=== PATIENT | female | born 1980 | race Caucasian/White ===

== ENCOUNTER 2021-03-10 13:42 | Inpatient (IN) | payer OTHER ==
[2021-03-10 17:02] LABS: BASO % 0.5 % (0-2.0); EOS % 0.4 % (0-4.5); HEMATOCRIT 35.4 % (32.4-45.2); HEMOGLOBIN 12.1 GM/dL (10.7-15.3); MCH 28.1 pg (25.7-33.7); MCHC 34.1 g/dl (32.0-36.0); MEAN CELL VOLUME 82.3 fl (80-96); MEAN PLT VOLUME 8.8 fl (7.5-11.1); NEUT % 85.1 % (42.8-82.8); PLATELET COUNT 251 10^3/uL (134-434); RDW 13.2 % (11.6-15.6); WHITE BLOOD COUNT 11.7 K/mm3 (4.0-10.0)
[2021-03-10] MEDS ORDERED: VANCOMYCIN 1 GM in D5W (PRE-DOCKED) 1,000 MG/250 ML IVPB ONE (17:06)
[2021-03-10 17:09] LABS: INR 1.14 (0.83-1.09); PROTHROMBIN TIME (PATIENT) 12.8 SEC (9.7-13.0)
[2021-03-10 17:11] LABS: ACTIVATED PTT 30.5 SECONDS (25.2-36.5)
[2021-03-10] MEDS ORDERED: VANCOMYCIN 1 GRAM (PRE-DOCKED) 1,000 MG/250 ML BAG IVPB ONE (17:21)
[2021-03-10 17:26] LABS: CALCIUM 9.1 mg/dL (8.5-10.1)
[2021-03-10 17:27] LABS: ALBUMIN 3.7 g/dl (3.4-5.0); BLOOD UREA NITROGEN 7.9 mg/dL (7-18)
[2021-03-10 17:30] LABS: CREATININE 0.7 mg/dL (0.55-1.3)
[2021-03-10 17:32] LABS: BILIRUBIN,TOTAL 0.6 mg/dL (0.2-1); TOT PROT 7.5 g/dl (6.4-8.2)
[2021-03-10] MEDS ORDERED: ACETAMINOPHEN 1000 MG/100 ML VIAL IVPB PRN (22:15)
[2021-03-10] MEDS ORDERED: morphine SULFATE 4 MG/ML VIAL IVPUSH PRN (22:16)
[2021-03-10 23:17] VITALS: BMI 27.1
[2021-03-11] MEDS ORDERED: ACETAMINOPHEN 1000 MG/100 ML VIAL IVPB PRN ×2 (04:51→11:28)
[2021-03-11] MEDS ORDERED: VANCOMYCIN 1 GRAM (PRE-DOCKED) 1,000 MG/250 ML BAG IVPB SCH (05:00)
[2021-03-11] MEDS ORDERED: SODIUM CHLORIDE 1,000 ML IV SCH (05:00)
[2021-03-11 08:54] LABS: HEMATOCRIT 32.3 % (32.4-45.2); HEMOGLOBIN 11.2 GM/dL (10.7-15.3); MCH 28.7 pg (25.7-33.7); MCHC 34.6 g/dl (32.0-36.0); MEAN CELL VOLUME 82.8 fl (80-96); MEAN PLT VOLUME 8.7 fl (7.5-11.1); PLATELET COUNT 211 10^3/uL (134-434); WHITE BLOOD COUNT 7.2 K/mm3 (4.0-10.0)
[2021-03-11 09:00] LABS: INR 1.26 (0.83-1.09); PROTHROMBIN TIME (PATIENT) 14.8 SEC (9.7-13.0)
[2021-03-11 09:12] LABS: CALCIUM 8.1 mg/dL (8.5-10.1)
[2021-03-11] MEDS ORDERED: SUCCINYLCHOLINE CHLORIDE 200 MG/10 ML SYRINGE ONE (09:12)
[2021-03-11] MEDS ORDERED: PROPOFOL 20 ML ONE (09:12)
[2021-03-11] MEDS ORDERED: ROCURONIUM BROMIDE 50 MG/5 ML SYRINGE ONE (09:12)
[2021-03-11 09:13] LABS: BLOOD UREA NITROGEN 6.1 mg/dL (7-18)
[2021-03-11] MEDS ORDERED: LIDOCAINE HCL 2% 100 MG/5 ML DISP.SYRIN ONE (09:13)
[2021-03-11] MEDS ORDERED: MIDAZOLAM HCL 2 MG/2 ML SINGLE DOSE VIAL ONE (09:13)
[2021-03-11 09:16] LABS: CREATININE 0.6 mg/dL (0.55-1.3)
[2021-03-11 09:18] LABS: BILIRUBIN,TOTAL 0.5 mg/dL (0.2-1); TOT PROT 6.1 g/dl (6.4-8.2)
[2021-03-11 09:37] LABS: ALBUMIN 2.8 g/dl (3.4-5.0)
[2021-03-11] MEDS ORDERED: VANCOMYCIN 1,000 MG VIAL (RESTRICTED TO ID ONLY) ONE ×2 (10:15→10:17)
[2021-03-11] MEDS ORDERED: DEXAMETHASONE SOD PHOSPHATE 4 MG/1 ML VIAL ONE (10:38)
[2021-03-11] MEDS ORDERED: LIDOCAINE HCL 1%, 10 MG/ML (20ML VIAL) INF ONE (10:50)
[2021-03-11] MEDS ORDERED: VANCOMYCIN 1,000 MG VIAL (RESTRICTED TO ID ONLY) IVPB ONE ×2 (11:00)
[2021-03-11] MEDS ORDERED: MEPERIDINE HCL 25 MG/ML VIAL IM PRN (11:22)
[2021-03-11] MEDS ORDERED: HYDROmorphone HCl 2 MG/ML VIAL ONE (11:25)
[2021-03-11] MEDS ORDERED: HYDROmorphone HCl 2 MG/ML VIAL IVPUSH PRN ×2 (11:26)
[2021-03-11] MEDS ORDERED: ACETAMINOPHEN 1000 MG/100 ML VIAL IVPB ONE (11:27)
[2021-03-11] MEDS ORDERED: ONDANSETRON 4 MG/2 ML VIAL IVPUSH PRN (11:27)
[2021-03-11] MEDS ORDERED: LACTATED RINGERS SOLUTION 1,000 ML IV SCH (11:30)
[2021-03-11] MEDS ORDERED: ACETAMINOPHEN INJECTION 100 ML IVPB ONE (11:37)
[2021-03-11] MEDS: SODIUM CHLORIDE 1,000 ML IV SCH (12:38)
[2021-03-11] MEDS ORDERED: oxyCODONE HCL 5 MG TABLET PO PRN (13:30)
[2021-03-11] MEDS: VANCOMYCIN 1 GRAM (PRE-DOCKED) 1,000 MG/250 ML BAG IVPB SCH (18:27)
[2021-03-11] MEDS: oxyCODONE HCL 5 MG TABLET PO PRN (19:57)
[2021-03-12] MEDS: VANCOMYCIN 1 GRAM (PRE-DOCKED) 1,000 MG/250 ML BAG IVPB SCH ×2 (05:54→18:36)
[2021-03-12] MEDS: SODIUM CHLORIDE 1,000 ML IV SCH ×2 (06:57→12:29)
[2021-03-12 08:19] LABS: BASO % 0.5 % (0-2.0); EOS % 2.3 % (0-4.5); HEMATOCRIT 31.5 % (32.4-45.2); HEMOGLOBIN 10.7 GM/dL (10.7-15.3); LYMPH % 21.2 % (8-40); MCH 28.1 pg (25.7-33.7); MEAN CELL VOLUME 82.6 fl (80-96); MEAN PLT VOLUME 8.5 fl (7.5-11.1); MONO % 8.1 % (3.8-10.2); NEUT % 67.9 % (42.8-82.8); PLATELET COUNT 234 10^3/uL (134-434); RBC 3.82 M/mm3 (3.60-5.2); RDW 13.3 % (11.6-15.6); WHITE BLOOD COUNT 7.9 K/mm3 (4.0-10.0)
[2021-03-12 08:50] LABS: ALBUMIN 2.7 g/dl (3.4-5.0); BLOOD UREA NITROGEN 7.1 mg/dL (7-18); CALCIUM 8.2 mg/dL (8.5-10.1)
[2021-03-12 08:52] LABS: BILIRUBIN,TOTAL 0.3 mg/dL (0.2-1); TOT PROT 5.9 g/dl (6.4-8.2)
[2021-03-12 08:53] LABS: CREATININE 0.6 mg/dL (0.55-1.3); PHOSPHOROUS 2.3 mg/dL (2.5-4.9)
[2021-03-12] MEDS: NAPH,MB-DB/K PH,MBDB POWDER PACKET PO SCH ×2 (09:55→21:14)
[2021-03-12] MEDS: POLYETHYLENE GLYCOL (HEALTHYLAX) 3350 17 GM PACKET PO SCH (10:24)
[2021-03-12] MEDS: oxyCODONE HCL 5 MG TABLET PO PRN (18:36)
[2021-03-12] MEDS: TOPIRAMATE 100 MG TABLET PO SCH (21:14)
[2021-03-12] MEDS ORDERED: TOPIRAMATE 100 MG TABLET PO SCH (22:00)
[2021-03-13] MEDS: SODIUM CHLORIDE 1,000 ML IV SCH ×2 (04:56→13:16)
[2021-03-13] MEDS: VANCOMYCIN 1 GRAM (PRE-DOCKED) 1,000 MG/250 ML BAG IVPB SCH ×2 (04:58→19:51)
[2021-03-13] MEDS: oxyCODONE HCL 5 MG TABLET PO PRN ×3 (04:59→22:25)
[2021-03-13 08:19] LABS: BASO % 0.7 % (0-2.0); EOS % 4.4 % (0-4.5); HEMATOCRIT 31.8 % (32.4-45.2); HEMOGLOBIN 10.6 GM/dL (10.7-15.3); LYMPH % 27.3 % (8-40); MCH 28.1 pg (25.7-33.7); MCHC 33.5 g/dl (32.0-36.0); MEAN CELL VOLUME 83.8 fl (80-96); MEAN PLT VOLUME 8.5 fl (7.5-11.1); MONO % 7.1 % (3.8-10.2); NEUT % 60.5 % (42.8-82.8); PLATELET COUNT 278 10^3/uL (134-434); RBC 3.79 M/mm3 (3.60-5.2); RDW 13.3 % (11.6-15.6); WHITE BLOOD COUNT 5.6 K/mm3 (4.0-10.0)
[2021-03-13 08:42] LABS: CALCIUM 8.6 mg/dL (8.5-10.1)
[2021-03-13 08:43] LABS: ALBUMIN 2.8 g/dl (3.4-5.0); MAGNESIUM 1.9 mg/dL (1.8-2.4)
[2021-03-13 08:46] LABS: CREATININE 0.6 mg/dL (0.55-1.3); PHOSPHOROUS 3.6 mg/dL (2.5-4.9)
[2021-03-13 08:47] LABS: BILIRUBIN,TOTAL 0.3 mg/dL (0.2-1)
[2021-03-13] MEDS: POLYETHYLENE GLYCOL (HEALTHYLAX) 3350 17 GM PACKET PO SCH (10:11)
[2021-03-13 15:13] LABS: URINE APPEARANCE CLEAR; URINE BILIRUBIN NEGATIVE (NEGATIVE); URINE COLOR YELLOW; URINE GLUCOSE (UA) NEGATIVE (NEGATIVE); URINE KETONE NEGATIVE (NEGATIVE); URINE LEUK ESTERASE NEGATIVE (NEGATIVE); URINE NITRITE NEGATIVE (NEGATIVE); URINE PROTEIN NEGATIVE (NEGATIVE); URINE UROBILINOGEN 0.2 mg/dL (0.2-1.0)
[2021-03-13] MEDS: PANTOPRAZOLE 20 MG TABLET PO SCH ×2 (15:25→22:25)
[2021-03-13] MEDS ORDERED: PT OWN MED DRAWER 7, Y5N ONE (22:19)
[2021-03-13] MEDS: TOPIRAMATE 100 MG TABLET PO SCH (22:25)
[2021-03-13] MEDS: VANCOMYCIN/WATER BAGS 1,250 MG/250 ML BAG IVPB SCH (22:26)
[2021-03-14] MEDS: SODIUM CHLORIDE 1,000 ML IV SCH ×2 (06:51→14:00)
[2021-03-14 09:11] LABS: BASO % 0.8 % (0-2.0); EOS % 4.6 % (0-4.5); HEMATOCRIT 34.3 % (32.4-45.2); HEMOGLOBIN 11.6 GM/dL (10.7-15.3); LYMPH % 22.9 % (8-40); MCH 28.3 pg (25.7-33.7); MCHC 33.8 g/dl (32.0-36.0); MEAN CELL VOLUME 83.6 fl (80-96); MEAN PLT VOLUME 8.6 fl (7.5-11.1); MONO % 8.4 % (3.8-10.2); NEUT % 63.3 % (42.8-82.8); PLATELET COUNT 321 10^3/uL (134-434); RBC 4.11 M/mm3 (3.60-5.2); RDW 13.3 % (11.6-15.6); WHITE BLOOD COUNT 5.4 K/mm3 (4.0-10.0)
[2021-03-14 09:42] LABS: BLOOD UREA NITROGEN 6.6 mg/dL (7-18)
[2021-03-14 09:43] LABS: CALCIUM 8.7 mg/dL (8.5-10.1)
[2021-03-14 09:44] LABS: CREATININE 0.7 mg/dL (0.55-1.3)
[2021-03-14 09:45] LABS: PHOSPHOROUS 3.8 mg/dL (2.5-4.9)
[2021-03-14 09:46] LABS: BILIRUBIN,TOTAL 0.3 mg/dL (0.2-1); TOT PROT 6.5 g/dl (6.4-8.2)
[2021-03-14] MEDS: VANCOMYCIN/WATER BAGS 1,250 MG/250 ML BAG IVPB SCH ×2 (11:10→21:18)
[2021-03-14] MEDS: POLYETHYLENE GLYCOL (HEALTHYLAX) 3350 17 GM PACKET PO SCH (11:10)
[2021-03-14] MEDS: PANTOPRAZOLE 20 MG TABLET PO SCH ×2 (11:10→21:18)
[2021-03-14] MEDS ORDERED: ACETAMINOPHEN 500 MG TABLET (FP) PO PRN (14:35)
[2021-03-14] MEDS ORDERED: oxyCODONE HCL 5 MG TABLET PO PRN (14:36)
[2021-03-14] MEDS: oxyCODONE HCL 5 MG TABLET PO PRN ×2 (15:02→21:18)
[2021-03-14] MEDS: [UNRECOGNIZED DRUG - OTHER] NS SCH ×2 (16:20→19:34)
[2021-03-14] MEDS: AZELASTINE NS SCH ×2 (16:20→19:34)
[2021-03-14] MEDS: FLUTICASONE NS SCH ×2 (16:20→19:34)
[2021-03-14] MEDS ORDERED: PT OWN MED DRAWER 7, Y5N ONE (21:15)
[2021-03-14] MEDS: TOPIRAMATE 100 MG TABLET PO SCH (21:18)
[2021-03-15 08:54] LABS: BASO % 0.8 % (0-2.0); EOS % 4.7 % (0-4.5); HEMATOCRIT 34.1 % (32.4-45.2); HEMOGLOBIN 11.5 GM/dL (10.7-15.3); LYMPH % 24.1 % (8-40); MCH 28.2 pg (25.7-33.7); MCHC 33.9 g/dl (32.0-36.0); MEAN CELL VOLUME 83.1 fl (80-96); MEAN PLT VOLUME 8.3 fl (7.5-11.1); MONO % 8.5 % (3.8-10.2); NEUT % 61.9 % (42.8-82.8); PLATELET COUNT 314 10^3/uL (134-434); RDW 13.2 % (11.6-15.6); WHITE BLOOD COUNT 5.4 K/mm3 (4.0-10.0)
[2021-03-15 09:26] LABS: ALBUMIN 2.9 g/dl (3.4-5.0); BLOOD UREA NITROGEN 13.1 mg/dL (7-18); CALCIUM 8.3 mg/dL (8.5-10.1); MAGNESIUM 2.1 mg/dL (1.8-2.4)
[2021-03-15 09:29] LABS: CREATININE 0.7 mg/dL (0.55-1.3); PHOSPHOROUS 2.8 mg/dL (2.5-4.9)
[2021-03-15 09:30] LABS: BILIRUBIN,TOTAL 0.3 mg/dL (0.2-1)
[2021-03-15 09:31] LABS: TOT PROT 6.2 g/dl (6.4-8.2)
[2021-03-15] MEDS: PANTOPRAZOLE 20 MG TABLET PO SCH ×2 (10:17→21:02)
[2021-03-15] MEDS: POLYETHYLENE GLYCOL (HEALTHYLAX) 3350 17 GM PACKET PO SCH (10:18)
[2021-03-15] MEDS ORDERED: PT OWN MED DRAWER 7, Y5N ONE ×2 (11:30→20:33)
[2021-03-15] MEDS: VANCOMYCIN/WATER BAGS 1,250 MG/250 ML BAG IVPB SCH ×2 (11:32→21:00)
[2021-03-15] MEDS: SODIUM CHLORIDE 1,000 ML IV SCH ×2 (11:32→20:57)
[2021-03-15] MEDS: TOPIRAMATE 100 MG TABLET PO SCH (21:02)
[2021-03-16 08:37] LABS: BASO % 0.9 % (0-2.0); EOS % 4.8 % (0-4.5); HEMATOCRIT 33.8 % (32.4-45.2); HEMOGLOBIN 11.6 GM/dL (10.7-15.3); LYMPH % 28.2 % (8-40); MCH 28.6 pg (25.7-33.7); MCHC 34.4 g/dl (32.0-36.0); MEAN PLT VOLUME 8.2 fl (7.5-11.1); MONO % 8.9 % (3.8-10.2); NEUT % 57.2 % (42.8-82.8); PLATELET COUNT 320 10^3/uL (134-434); RBC 4.07 M/mm3 (3.60-5.2); RDW 13.2 % (11.6-15.6); WHITE BLOOD COUNT 5.6 K/mm3 (4.0-10.0)
[2021-03-16 09:04] LABS: CALCIUM 8.2 mg/dL (8.5-10.1)
[2021-03-16 09:06] LABS: ALBUMIN 2.7 g/dl (3.4-5.0); BLOOD UREA NITROGEN 15.5 mg/dL (7-18)
[2021-03-16 09:08] LABS: CREATININE 0.6 mg/dL (0.55-1.3)
[2021-03-16 09:09] LABS: BILIRUBIN,TOTAL 0.3 mg/dL (0.2-1); MAGNESIUM 1.8 mg/dL (1.8-2.4); PHOSPHOROUS 2.9 mg/dL (2.5-4.9)
[2021-03-16] MEDS ORDERED: PT OWN MED DRAWER 7, Y5N ONE ×4 (09:15→12:26)
[2021-03-16] MEDS: PANTOPRAZOLE 20 MG TABLET PO SCH (09:18)
[2021-03-16] MEDS: POLYETHYLENE GLYCOL (HEALTHYLAX) 3350 17 GM PACKET PO SCH (09:19)
[2021-03-16] MEDS ORDERED: RIFAMPIN 300 MG CAPSULE PO SCH (10:00)
[2021-03-16] MEDS: VANCOMYCIN/WATER BAGS 1,250 MG/250 ML BAG IVPB SCH (12:12)
[2021-03-16] MEDS: SODIUM CHLORIDE 1,000 ML IV SCH (12:26)
[2021-03-16] MEDS ORDERED: COLLAGENASE CLOSTRIDIUM HIST. 30 GRAMS TUBE TP SCH ×2 (14:30→16:56)
[2021-03-16 16:14] VITALS: BP 130/64; PULSE 90; TEMP 98
== END 2021-03-16 19:24 | disposition home health service (06) | DRG 711 ==
LOC: JER 13:42 → JERBED 17:10 → J8W 22:28
PROVIDERS: ADMIT Internal Medicine; ATTEND Internal Medicine
PROC: 3E10X8Z Irrigation of Skin and Mucous Membranes using Irrigating Substance (ICD-10-PCS; 2021-03-11)
PROC: 02HV33Z Insertion of Infusion Device into Superior Vena Cava, Percutaneous Approach (ICD-10-PCS; 2021-03-11)
PROC: B518ZZA Fluoroscopy of Superior Vena Cava, Guidance (ICD-10-PCS; 2021-03-11)
PROC: 0J9Q0ZX Drainage of Right Foot Subcutaneous Tissue and Fascia, Open Approach, Diagnostic (ICD-10-PCS; 2021-03-11)
PROC: 0S9M0ZZ Drainage of Right Metatarsal-Phalangeal Joint, Open Approach (ICD-10-PCS; principal; 2021-03-11 10:30)
DX: T81.41XA Infection following a procedure, superficial incisional surgical site, initial encounter (principal); B95.61 Methicillin susceptible Staphylococcus aureus infection as the cause of diseases classified elsewhere; L03.115 Cellulitis of right lower limb; M32.9 Systemic lupus erythematosus, unspecified; G43.909 Migraine, unspecified, not intractable, without status migrainosus; K21.9 Gastro-esophageal reflux disease without esophagitis; D72.829 Elevated white blood cell count, unspecified; L08.89 Other specified local infections of the skin and subcutaneous tissue; R39.15 Urgency of urination; E04.1 Nontoxic single thyroid nodule; R30.0 Dysuria; Z98.1 Arthrodesis status; Z88.0 Allergy status to penicillin; Y83.9 Surgical procedure, unspecified as the cause of abnormal reaction of the patient, or of later complication, without mention of misadventure at the time of the procedure
CPT/HCPCS: 36415; 36569; 73700-TC-RT; 77001-TC-FY; 80053; 81003; 83735; 84100; 84703; 85025; 85027; 85610; 85651; 85730; 86140; 86850; 86900; 86901; 87040; 87070; 87186; 87205; 93005; 93010; 94760; 99285-25; C1751; C9803; G0480; J0131; U0003; U0005